=== PATIENT | female | born 1960 | race Two or more races ===

== ENCOUNTER 2018-05-15 12:57 | Emergency (ER) | payer BC ==
[~2018-05-15] VITALS: Ht 160 cm; Wt 80.3 kg
[~2018-05-15 12:57] MED LIST: NKM
[2018-05-15 13:04] VITALS: BP 150/75
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
[2018-05-15 14:19] VITALS: BP 145/87
--- NOTE | 2018-05-15 14:19 | NUR ---
ED Nurse Note: Pt was seen due to headache. Pt cleared by Health Care Provider for discharge. DC instructions/prescriptions given and explained to pt and verbalized understanding of teachings. All medical devices such as ID band removed. Pt AAO x4, ambulatory and left with all personal belongings.
== END 2018-05-15 14:19 | disposition home or self-care (01) ==
LOC: EMR 13:20
DX: G44.309 Post-traumatic headache, unspecified, not intractable (principal); S00.03XD Contusion of scalp, subsequent encounter; Z88.6 Allergy status to analgesic agent
CPT/HCPCS: 70450; 99284